=== PATIENT | female | born 1990 | race Caucasian/White ===

== ENCOUNTER 2018-12-08 18:27 | Emergency (ER) | payer BC ==
[~2018-12-08] VITALS: Ht 149.9 cm; Wt 54.4 kg
[2018-12-08 18:30] VITALS: BP_SYST 134
--- NOTE | 2018-12-08 18:32 | NUR ---
Patient to ER bed 7 to gown for evaluation. Side rails up. Assumed care.
--- NOTE | 2018-12-08 18:35 | NUR ---
ER at bedside examining patient.
[2018-12-08] MEDS ORDERED: LORazepam 1 MG TABLET PO ONE (18:45)
--- NOTE | 2018-12-08 19:30 | NUR ---
Patient arrived from home with complaints of chest pain. Breathing is non labored, and equal. Denies any N/V, headache, or sob. Patient is ambulatory and able to verbalize her needs. Patient resting in bed and was given ativan 2mg at 1900. Will monitor patient.
[2018-12-08 20:05] VITALS: BP_SYST 120
--- NOTE | 2018-12-08 20:05 | NUR ---
Patient given written and verbal discharge instructions and verbalizes understanding. ER MD discussed with patient the results and treatment provided. Patient in stable condition. ID arm band removed. Rx of Xanax given. Patient educated on pain management and to follow up with PMD. Pain Scale 1/10. Opportunity for questions provided and answered. Medication side effect fact sheet provided.
== END 2018-12-08 20:05 | disposition home or self-care (01) ==
LOC: SED 18:27
DX: F41.9 Anxiety disorder, unspecified (principal); R06.4 Hyperventilation
CPT/HCPCS: 99283